=== PATIENT | male | born 1960 | race Hispanic/Latino ===

== ENCOUNTER 2017-01-30 21:51 | Emergency (ER) | payer MEDICAID, OTHER ==
[2017-01-30 21:51] VITALS: BMI 21.3
[2017-01-30 22:07] VITALS: PULSE 76; RESP 18; TEMP 98.1; O2SAT 100
[2017-01-30] MEDS ORDERED: Fluorescein 1 mg Ophthalmic Strip ONE (22:18)
[2017-01-30] MEDS ORDERED: Tetracaine 0.5% Ophth (OR ONLY) ONE (22:18)
[2017-01-30] MEDS ORDERED: Tobramycin 0.3% OPHT SOLN OD STA (22:24)
--- NOTE | 2017-01-30 22:26 | C.PDOC ---
History Of Present Illness Patient is a 56 y/o male who presents to the ED with complaints of right eye pain and blurry vision. Patient reports to have been cutting a lesli jo when a thorn went in his right eye. Pt removed it but continues to have pain to the affected area. Patient states to normally wear glasses but is not wearing them at this time. Denies bleeding, diplopia, or discharge. Time Seen by Provider: 01/30/17 22:12 Chief Complaint (Nursing): Eye Problem History Per: Patient History/Exam Limitations: no limitations Onset/Duration Of Symptoms: Hrs Current Symptoms Are (Timing): Still Present Injury To Eye?: Yes Associated Symptoms: Pain (right eye), Decreased Vision (blurry in right eye). denies: Discharge From Eye Recent travel outside of the [place]: No Additional History Per: Patient Past Medical History Reviewed: Historical Data, Nursing Documentation, Vital Signs Vital Signs: Last Vital Signs Temp 98.1 F 01/30/17 22:06 Pulse 76 01/30/17 22:06 Resp 18 01/30/17 22:06 BP Pulse Ox 100 01/31/17 04:56 - Medical History PMH: Arthritis, Asthma, CAD, Depression, Diabetes, Gastritis, HTN, Hypercholesterolemia Denies: Chronic Kidney Disease Surgical History: Coronary Stent (2013 LAD) Family History: States: Unknown Family Hx - Social History Hx Tobacco Use: No Hx Alcohol Use: No Hx Substance Use: No - Immunization History Hx Tetanus Toxoid Vaccination: No Hx Influenza Vaccination: No Hx Pneumococcal Vaccination: No Review Of Systems Eyes: Positive for: Pain (right eye), Vision Change (blurry) Physical Exam - Physical Exam Appears: Well, Non-toxic, No Acute Distress Skin: Warm, Dry, Rash ((+) 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 No foreign body with lid inversion. ) Nose: Normal Oral Mucosa: Moist Neck: Normal ROM, Supple Chest: Symmetrical Respiratory: No Accessory Muscle Use Neurological/Psych: Oriented x3, Normal Speech ED Course And Treatment O2 Sat by Pulse Oximetry: 100 Progress Note: Plan: Tobrex administered. Reassess: Patient states discomfort resolved with Tetracaine. Patient is resting comfortably, and is in no distress. Patient was administered eye drops and instructed to follow up with clinic in 1-2 days for further evaluation. - Physician Consult Information Time Consulting Physician Contacted: 23:45 Physician Contacted: Krishna San DO Outcome Of Conversation: Dr. San was consulted and agreed upon plan and discharge. Disposition - Disposition Referrals: Camden Cheek MD [Staff Provider] - Disposition: HOME/ ROUTINE Disposition Time: 22:25 Condition: STABLE Additional Instructions: Follow up with referral physician in 1-2 days without fail for further evaluation. Take medications as prescribed. Return to the emergency department at any time if symptoms persist or worsen. Prescriptions: Tobramycin 0.3% [Tobramycin 5 Ml] 1 drop OP Q4 #1 bottle Instructions: Corneal Abrasion (ED) Forms: [facility] (Bolivian) - Clinical Impression Clinical Impression: Corneal abrasion - Scribe Statement The provider has reviewed the documentation as recorded by the Scribe Nini Lal All medical record entries made by the Scribe were at my direction and personally dictated by me. I have reviewed the chart and agree that the record accurately reflects my personal performance of the history, physical exam, medical decision making, and the department course for this patient. I have also personally directed, reviewed, and agree with the discharge instructions and disposition.
[2017-01-30] MEDS ORDERED: Tobramycin 0.3% OPH OINT ONE (22:29)
== END 2017-01-30 22:50 | disposition home or self-care (01) ==
LOC: C.ER 21:51
DX: S05.01XA Injury of conjunctiva and corneal abrasion without foreign body, right eye, initial encounter (principal); X58.XXXA Exposure to other specified factors, initial encounter

== ENCOUNTER 2018-08-26 16:05 | Emergency (ER) | payer MEDICAID ==
[2018-08-26 16:06] VITALS: BMI 21.3
[2018-08-26 16:25] VITALS: RESP 20
--- NOTE | 2018-08-26 17:35 | RAD ---
Date of service: 08/26/2018 PROCEDURE: Right Foot Radiographs. HISTORY: great toe uler r/o osteomyelitis COMPARISON: None. TECHNIQUE: 3 views obtained. FINDINGS: BONES: Plantar and Achilles Tendon insertion calcaneal spurs. No fractures identified. No evidence of osteomyelitis. JOINTS: Normal. SOFT TISSUES: Normal. OTHER FINDINGS: None. IMPRESSION: No significant or acute findings to account for/ related to the clinical presentation. Additional benign and/or incidental findings described above.
[2018-08-26 17:46] LABS: BASO % 0.5 % (0.0-2.0); EOS # 0.1 K/uL (0.0-0.7); EOS % 1.5 % (0.0-4.0); HEMOGLOBIN 14.9 g/dL (12.0-18.0); LYMPH % 26.7 % (20.0-40.0); MEAN CELL VOLUME 86.7 fL (80.0-94.0); MEAN CORPUSCULAR HEMOGLOBIN 30.3 pg (27.0-31.0); MEAN CORPUSCULAR HGB CONC 34.9 g/dL (33.0-37.0); MEAN PLATELET VOLUME 8.1 fL (7.2-11.7); MONO # 0.6 K/uL (0.0-0.8); MONO % 8.5 % (0.0-10.0); NEUT # 4.6 K/uL (1.8-7.0); NEUT % 62.8 % (50.0-75.0); RBC 4.93 Mil/uL (4.40-5.90); RED CELL DISTRIBUTION WIDTH 12.1 % (11.5-14.5); WHITE BLOOD COUNT 7.3 K/uL (4.8-10.8)
[2018-08-26 18:00] LABS: ALB/GLOB RATIO 1.6 (1.0-2.1); ALBUMIN 4.4 g/dL (3.5-5.0); ALT/SGPT 26 U/L (21-72); AST/SGOT 18 U/L (17-59); BLOOD UREA NITROGEN 16 mg/dL (9-20); CALCIUM 9.4 mg/dl (8.6-10.4); GFR NON-AFRICAN AMERICAN > 60
--- NOTE | 2018-08-26 18:13 | C.PDOC ---
History Of Present Illness 58 y/o male,w/PMhx of diabetes and diabetic neuropathy presents to the ER for evaluation of right great toe ulcer for a while. Patient states that his PMD is and he does not have a recorder of deeds. Patient reports that he wears hard boots and noticed some clear drainage intermittently on his sock. Denies having difficulty ambulating, fever, chills, trauma, falls. Time Seen by Provider: 08/26/18 16:46 Chief Complaint (Nursing): Lower Extremity Problem/Injury History Per: Patient History/Exam Limitations: no limitations Onset/Duration Of Symptoms: Days Current Symptoms Are (Timing): Still Present Severity: Moderate Past Medical History Reviewed: Historical Data, Nursing Documentation, Vital Signs Vital Signs: Last Vital Signs Temp 97.8 F 08/26/18 16:23 Pulse 98 H 08/26/18 16:23 Resp 20 08/26/18 16:23 BP 145/87 08/26/18 16:23 Pulse Ox 97 08/26/18 16:23 Primary Care Provider: Nicolas Smith - Medical History PMH: Arthritis, Asthma, CAD, Depression, Diabetes, Gastritis, HTN, Hypercholesterolemia Denies: Chronic Kidney Disease Surgical History: Coronary Stent (2013 LAD) Family History: States: No Known Family Hx - Social History Hx Tobacco Use: No Hx Alcohol Use: No Hx Substance Use: No - Immunization History Hx Tetanus Toxoid Vaccination: No Hx Influenza Vaccination: No Hx Pneumococcal Vaccination: No Review Of Systems Except As Marked, All Systems Reviewed And Found Negative. Constitutional: Negative for: Fever, Chills Skin: Positive for: Other (right big toe ulcer) Physical Exam - Physical Exam Appears: Non-toxic, No Acute Distress Skin: Normal Color, Warm, Dry, Other (mild erythema to right great toe with healing wound, no streaking, no increased warmth, no drainage, no fluctuance) Head: Atraumatic, Normacephalic Eye(s): bilateral: Normal Inspection Neck: Supple Chest: Symmetrical Cardiovascular: Rhythm Regular Respiratory: Normal Breath Sounds, No Rales, No Rhonchi, No Wheezing Extremity: Normal ROM (normal ROM in right foot including all toes) Pulses: Right Dorsalis Pedis: Normal Neurological/Psych: Oriented x3, Normal Speech, Normal Motor ED Course And Treatment - Laboratory Results Result Diagrams: 08/26/18 17:42 08/26/18 17:42 Lab Results: Total Bilirubin 0.6 mg/dL (0.2-1.3) 08/26/18 17:42 AST 18 U/L (17-59) 08/26/18 17:42 ALT 26 U/L (21-72) 08/26/18 17:42 Alkaline Phosphatase 69 U/L (38-126) 08/26/18 17:42 Total Protein 7.2 g/dL (6.3-8.3) 08/26/18 17:42 Albumin 4.4 g/dL (3.5-5.0) 08/26/18 17:42 Globulin 2.7 gm/dL (2.2-3.9) 08/26/18 17:42 Albumin/Globulin Ratio 1.6 (1.0-2.1) 08/26/18 17:42 O2 Sat by Pulse Oximetry: 97 (RA) Pulse Ox Interpretation: Normal - Other Rad X-Ray-Foot X-Ray: Viewed By Me, Read By Radiologist Interpretation: Date of service: 08/26/2018. PROCEDURE: Right Foot Radiographs. HISTORY: great toe uler r/o osteomyelitis. COMPARISON: None. TECHNIQUE: 3 views obtained. FINDINGS: BONES: Plantar and Achilles Tendon insertion calcaneal spurs. No fractures identified. No evidence of osteomyelitis. JOINTS: Normal. SOFT TISSUES: Normal. OTHER FINDINGS: None. IMPRESSION: No significant or acute findings to account for/ related to the clinical presentation. Additional benign and/or incidental findings described above. Medical Decision Making Medical Decision Making: Plan: --Labs --X-Ray-Foot Updates: Patient has been discharged and instructed to follow up in podiatry clinic. Disposition Counseled Patient/Family Regarding: Studies Performed, Diagnosis, Need For Followup - Disposition Referrals: Monika Rodriguez DPM [Staff Provider] - [facility] [Outside] [facility] [Outside] Disposition: HOME/ ROUTINE Disposition Time: 18:08 Condition: STABLE Prescriptions: Cephalexin [cephalexin] 500 mg PO QID #28 cap Instructions: Diabetic Foot Ulcer (DC), Diabetic Foot Care (ED) Forms: [facility] ([place]ijani), General Discharge Instructions - Clinical Impression Clinical Impression: Diabetic ulcer of toe of right foot - Scribe Statement The provider has reviewed the documentation as recorded by the Scribe Red Arredondo Provider Attestation: All medical record entries made by the Jazlyn were at my direction and personally dictated by me. I have reviewed the chart and agree that the record accurately reflects my personal performance of the history, physical exam, medical decision making, and the department course for this patient. I have also personally directed, reviewed, and agree with the discharge instructions and disposition.
[2018-08-26 18:51] VITALS: BP 138/80; PULSE 91; TEMP 98.8
[2018-08-26 18:55] VITALS: O2SAT 97
== END 2018-08-26 18:49 | disposition home or self-care (01) ==
LOC: C.ER 16:05
DX: E11.621 Type 2 diabetes mellitus with foot ulcer (principal); L97.519 Non-pressure chronic ulcer of other part of right foot with unspecified severity; I25.10 Atherosclerotic heart disease of native coronary artery without angina pectoris; I10 Essential (primary) hypertension; E78.00 Pure hypercholesterolemia, unspecified